=== PATIENT | female | born 2000 | race Hispanic/Latino ===

== ENCOUNTER 2022-02-21 22:37 | Observation (INO) | payer OTHER, MEDICAID, SELFPAY ==
[2022-02-21 23:25] VITALS: BP 127/75
[2022-02-21] MEDS: LACTATED RINGERS 1,000 ML 150 ML IV (23:35)
[2022-02-21] MEDS: NIFEdipine 10 MG CAPSULE PO ×2 (23:41→23:57)
--- NOTE | 2022-02-21 23:48 | PM.OBTRLD ---
Visit Information Visit Information Date of evaluation: 02/21/22 On-call OB Provider: Yaneth Tidwell Reason for Evaluation: Yes pre-term labor Vital Signs Vital Signs: Vital Signs - 8 hr 02/21/22 23:25 Blood Pressure 127/75 [facility] Social History Smoking Status: Never smoker Review of Systems Review of Systems Narrative: Patient with intercourse yesterday presented complaining of cramping and light vaginal bleeding. Exam Vital Signs (past 8 hours): - 02/21/22 23:25 Blood Pressure 127/75 Narrative Exam Narrative: Blood pressure 127/75, pulse 65, temperature 36.2? HEENT exam within normal limits. Lungs are clear to auscultation percussion. Heart is regular rate and rhythm no S3-S4 murmurs. Abdomen is soft, with no rebound. Patient does complain of pain on the right upper side which is where the placenta is. Extremities without edema and nontender. Objective Imaging US - abdomen: My impression: No obvious abruption. No previa. Cervical length over 4 cm. Labs Result Diagrams: 02/21/22 23:49 Evaluation Evaluation Baseline heart rate: 130 Variability: Moderate (11-25) monitor accelerations: Present Monitor Decelerations: Absent Contraction Frequency (minutes): 3 Uterine Contraction Intensity: Mild Category of Tracing: Reactive Status: Category l Cervical dilation (cm): 0 Cervical effacement (%): 0 station: -3 Diagnosis, Plan/Disposition Plan/Disposition Plan: 21-year-old 3 para 2 EDC 04/15/2022 at 32 weeks 3 days who presented with light bleeding and cramping. Previous ultrasound done at 20 weeks reviewed and no previa. Patient was evaluated and normal CBC, UA. Patient was given IV fluid hydration and nifedipine protocol without significant change and her contractions. Patient was started on magnesium sulfate and given betamethasone. Patient had a known initial decreasing contractions with the magnesium sulfate but continues to contract every 5 minutes mild palpation. No change in cervix. Ultrasound no evidence of previa, abruption, cervical thinning. Will continue magnesium sulfate and monitoring now. Repeat betamethasone 12 hours post last dose. If symptoms do not worsen will wean off the magnesium later today and possibly home if stable.
[2022-02-21 23:54] LABS: Add Manual Diff / Slide Review NO; Basophils Absolute Auto 100 /uL (0-100); Basophils Percent Auto 0.6 % (0-2); Eosinophils Absolute Auto 100 /uL (0-450); Eosinophils Percent Auto 1.1 % (2-4); Hematocrit 33.6 % (36-46); Hemoglobin 11.7 g/dL (12.0-16.0); Lymphocytes Absolute Auto 2300 /uL (1100-4500); Lymphocytes Percent Auto 24.7 % (25-40); Mean Corpuscular HGB Conc 34.7 % (30-36); Mean Corpuscular Hemoglobin 29.4 PG (26-34); Mean Corpuscular Volume 84.7 fL (80-100); Monocytes Absolute Auto 800 /uL (0-900); Monocytes Percent Auto 8.5 % (3-14); Neutrophils Absolute Auto 6200 /uL (1500-7000); Neutrophils Percent Auto 65.1 % (50-75); Platelet Count 181 X10^3/uL (150-400); Red Blood Cell Count 3.97 X10^6/uL (4.0-5.2); White Blood Cell Count 9.5 X10^3/uL (4.5-11.0)
[2022-02-22 00:01] LABS: Appearance Urine UA CLEAR; Bilirubin Urine UA NEGATIVE (NEGATIVE); Color Urine UA YELLOW; Glucose Urine UA NEGATIVE (Negative); Ketones Urine UA NEGATIVE (NEGATIVE); Leukocyte Esterase Urine UA TRACE (NEGATIVE); Nitrite Urine UA NEGATIVE (Negative); Occult Blood Urine UA 2+ (Negative); Protein Urine UA NEGATIVE (Negative); Specific Gravity Urine UA <=1.005 (1.000-1.035); Urobilinogen Urine UA 0.2 E.U./dL (0.2)
[2022-02-22 00:08] LABS: Amorphous Sediment Urine 1+; Bacteria Urine Few (2-10); RBC Urine None Seen (0-5/HPF); Squamous Epithelial Cell Urine 1-5 /HPF (0-5/HPF); WBC Urine 0-1/HPF (0-5/HPF)
[2022-02-22 00:09] LABS: Culture Indicated Urine Specimen Cultured
[2022-02-22 00:14] LABS: COVID19 -Nasal RAPID Negative (Negative)
[2022-02-22] MEDS: NIFEdipine 10 MG CAPSULE PO ×2 (00:21→00:47)
[2022-02-22] MEDS: NIFEdipine 30 MG TAB ER PO (00:54)
[2022-02-22] MEDS: BETAMETHASONE 30 MG/5 ML MDV 12 MG IM ×2 (01:06→13:23)
[2022-02-22] MEDS: LACTATED RINGERS 1,000 ML 150 ML IV (03:08)
[2022-02-22] MEDS: MAGNESIUM SULFATE 4 GM/100 ML PIGGYBACK IV (03:09)
[2022-02-22] MEDS: MAGNESIUM SULFATE 20 GM/500 ML IV.SOLN IV (04:11)
--- NOTE | 2022-02-22 06:41 | DI.US.S_ITS ---
PROCEDURE: US OB LIMITED INDICATIONS: labor OUTSIDE/PRIOR DATING DATA: Last menstrual period (LMP): Not available. LMP-based estimated date of delivery (MIMI): Not available. First dating scan (date and location): 09/08/2021 at [facility]. Estimated date of delivery (MIMI) from first dating scan: 04/15/2022. TECHNIQUE: Real-time scanning was performed of the fetus, with image documentation and biometric measurements. Biophysical profile was also obtained. COMPARISON: [facility], US, US OB > 14 WEEKS COMPLETE ANATOMY, 12/05/2021, 16:10. [facility], US, US OB < 14 WEEKS + OB TRANSVAG, 09/08/2021, 7:09. FINDINGS: General: A single living intrauterine gestation is present. Presentation: Transverse oblique, head to the left. Placenta: Placental position is right posterior, without previa. Amniotic fluid index: 8.3 cm, normal range is 5-24 cm. Single deepest vertical pocket is 3.9 cm. heart rate: 152 beats per minute. Maternal cervical canal: 4.3 cm long. Normal lower limit is 2.5 cm. biometrics: Not performed. Clinically estimated gestational age: 32 weeks 4 days IMPRESSION: 1. A single living intrauterine gestation with an estimated gestational age of 32 weeks 4 days based on the initial dating ultrasound. 2. Placenta difficult to visualize. No abuse placental abruption. We strive to produce accurate, complete, and clear reports of imaging services. To assist us in improving patient care, this report was composed using standard report templates and voice recognition software. Therefore, it may contain abnormal punctuation, insertions and/or omissions. Occasional wrong-word or sound-alike substitutions may occur. Though we review the report and make efforts to correct it, we do recommend that the report be read carefully in proper context to recognize any text inaccuracies. Dictated by: Jo Riggs M.D. on 02/22/2022 at 7:54 Approved by: Jo Riggs M.D. on 02/22/2022 at 8:01
--- NOTE | 2022-02-22 11:45 | PM.DS.1 ---
History of Present Illness History of Present Illness Date Patient Seen: 02/22/22 Time Patient Seen: 11:45 Date of Onset of Symptoms: 02/21/22 Chief complaint: observation of labor Narrative: Premature labor and vaginal bleeding Discharge Providers Provider Date of admission: 02/21/22 22:37 Discharge Date: 02/22/22 Discharge provider: Yaneth Tidwell MD Summary Hospital Course Discharge Diagnosis: Premature labor with vaginal bleeding Hospital Course: Patient arrived on Labor and delivery at 32 weeks 3 days with onset of light vaginal bleeding after intercourse and increasing contractions. Patient received IV fluids, oral nifedipine, and eventually IV magnesium sulfate to control her contractions. Patient's contractions have finally decreased. Her bleeding has not increased. Ultrasound does not show any evidence abruption or cervical thinning. Status at Discharge Cognitive/behavioral status at discharge: oriented Functional status at discharge: independent ambulation Overall status at discharge: patient is progressing back to baseline Time Spent with Patient Time spent: Less than 30 minutes Exam Narrative Exam Narrative: Abdomen is soft, with minimal tenderness in the right upper quadrant. Extremities without edema. Objective Labs Result Diagrams: 02/21/22 23:49 Labs: Laboratory Results - last 24 hr 02/21/22 02/21/22 02/21/22 23:40 23:40 23:49 WBC RBC Hgb Hct MCV MCH MCHC RDW Plt Count Neut % (Auto) Lymph % (Auto) [place] % (Auto) Eos % (Auto) Baso % (Auto) Neut # (Auto) Lymph # (Auto) [place] # (Auto) Eos # (Auto) Baso # (Auto) Urine Color Yellow Urine Appearance Clear Urine pH 7.0 Ur Specific [place] <=1.005 Urine Protein Negative Urine Glucose (UA) Negative Urine Ketones Negative Urine Occult Blood 2+ H Urine Nitrate Negative Urine Bilirubin Negative Urine Urobilinogen 0.2 Ur Leukocyte Esterase Trace H Urine RBC None seen Urine WBC 0-1/hpf Ur Squamous Epith Cells 1-5 /hpf Amorphous Sediment 1+ Urine Bacteria Few (2-10) H Ur Culture Indicated? Specimen cultured SARS-CoV-2 (PCR) Negative Blood Type O Positive Antibody Screen Negative 02/21/22 23:49 WBC 9.5 RBC 3.97 L Hgb 11.7 L Hct 33.6 L MCV 84.7 MCH 29.4 MCHC 34.7 RDW 13.0 Plt Count 181 Neut % (Auto) 65.1 Lymph % (Auto) 24.7 L [place] % (Auto) 8.5 Eos % (Auto) 1.1 L Baso % (Auto) 0.6 Neut # (Auto) 6200 Lymph # (Auto) 2300 [place] # (Auto) 800 Eos # (Auto) 100 Baso # (Auto) 100 Urine Color Urine Appearance Urine pH Ur Specific [place] Urine Protein Urine Glucose (UA) Urine Ketones Urine Occult Blood Urine Nitrate Urine Bilirubin Urine Urobilinogen Ur Leukocyte Esterase Urine RBC Urine WBC Ur Squamous Epith Cells Amorphous Sediment Urine Bacteria Ur Culture Indicated? SARS-CoV-2 (PCR) Blood Type Antibody Screen COUNT INCLUDES THE [facility] Social History Smoking Status: Never smoker Discharge Assessment & Plan Assessment and Plan Assessment: 32 and half weeks gestation with mild vaginal bleeding and contractions eventually under control. Unclear etiology of patient's symptoms but improving. Plan of Treatment: Patient is discharged home to be taking oral nifedipine daily. Patient is to call her primary OB provider and follow-up in 3-5 days. Precautions to return or call immediately if she has heavy vaginal bleeding, increasing abdominal pain, decreased movement or other concerns. Patient advised not to have intercourse. Discharge Plan Discharge Plan Patient Disposition: Home Provider Discharge Comment: Patient is to return or go to [facility] immediately if she begins having increasing bleeding, increasing pain, decreased movement. Discharge orders & Medications Prescriptions: New nifedipine 30 mg tablet extended release 30 mg PO DAILY Qty: 20 0RF Discontinued famotidine 20 mg tablet 0RF Label Comments: TAKE 1 TABLET BY MOUTH TWICE DAILY Follow up/Referrals: Yaneth Tidwell MD [Physician] - Carol Casas CNM [Non-Staff] - 3-5 Days (Follow-up vaginal bleeding and labor) Diet/Activity/Treatments Diet: Regular Activity: No intercourse. Skin/Wound/Dressing Care Report to your healthcare provider any signs of infection, such as:: increased pain Discharge Data Attending Provider: Yaneth Tidwell
== END 2022-02-22 13:34 | disposition home or self-care (01) ==
PROVIDERS: Admitting Provider Specialist; Referring Provider Specialist; Visit Provider Specialist
DX: O60.03 Preterm labor without delivery, third trimester (principal); O46.93 Antepartum hemorrhage, unspecified, third trimester; Z3A.32 32 weeks gestation of pregnancy; Z20.822 Contact with and (suspected) exposure to COVID-19
CPT/HCPCS: 36415; 59025; 59050; 76815; 76819; 81003; 81015; 85025; 86850; 86900; 86901; 87086; 87635; 96360; 96372; 99217; 99218; C9803; G0378; G0379; J0702; J3475